=== PATIENT | male | born 1970 | race Caucasian/White ===

== ENCOUNTER 2018-12-01 19:44 | Emergency (ER) | payer OTHER ==
[~2018-12-01] VITALS: Ht 177.8 cm; Wt 83.5 kg
[2018-12-01 20:00] VITALS: Ht 177.8 cm; Wt 83.5 kg
[2018-12-01 21:44] VITALS: BP 150/98
== END 2018-12-01 21:44 | disposition home or self-care (01) ==
LOC: ED 19:44
DX: K08.89 Other specified disorders of teeth and supporting structures (principal)
CPT/HCPCS: J1885